=== PATIENT | male | born 1960 | race Caucasian/White ===

== ENCOUNTER → 2021-04-12 | Outpatient (REF) ==
--- NOTE | 2021-04-12 15:17 | REP ---
INDICATION: LT FOOT METARARSALGIA W/ PAIN ? [facility]'S [facility]UROMA. COMPARISON: None TECHNIQUE: Three limited FINDINGS: There is mild to moderate posterior disc space narrowing at every level. Vertebral body height and alignment is within normal limits. Slight anterior lipping is noted. Degenerative facet joint changes are suspected bilaterally at L4-5 and L5-S1. The pedicles are intact bilaterally. IMPRESSION: Chronic changes as described above. <Electronically signed by Myron Peña > 04/12/21 [id number]
== END ==
LOC: M PLALAB 13:17 → M PLAIMG 13:17
PROVIDERS: ATTEND Internal Medicine
DX: M54.5 Low back pain (principal)